=== PATIENT | female | born 1950 | race Caucasian/White ===

== ENCOUNTER 2023-06-12 12:35 | Outpatient (CLI) | payer BC, SELFPAY | END 2023-06-12 12:36 | disposition home or self-care (01) | LOC: AMB 06-22 12:18 | PROVIDERS: PCP Family Medicine; Visit Provider Emergency Medicine | DX: S59.911A Unspecified injury of right forearm, initial encounter (principal); W01.0XXA Fall on same level from slipping, tripping and stumbling without subsequent striking against object, initial encounter; Z91.81 History of falling; Y92.099 Unspecified place in other non-institutional residence as the place of occurrence of the external cause | CPT/HCPCS: A0425; A0429 ==

== ENCOUNTER 2023-06-12 13:11 | Observation (INO) | payer BC, SELFPAY ==
[2023-06-12] VITALS (34 sets, daily range): BP systolic 65–148; BP diastolic 49–83; PULSE 65–81; RESP 14–16; TEMP 36.1–37.3; O2SAT 94–99; BMI 19.6; BMI 18.3
--- NOTE | 2023-06-12 13:26 | ED.FALL ---
HPI - Fall General Time Seen by Provider: 13: Date Seen: 06/12/23 Chief Complaint: Fall/Minor Trauma Stated Complaint: Fall Time Seen by Provider: 06/12/23 13:20 Source: patient, family and EMS Mode of arrival: EMS History of Present Illness HPI Narrative: This 72-year-old female is brought in by ambulance after a fall and reported confusion. She reportedly at [facility] and fell unwitnessed. Patient has been noted to be unable to give a definitive story for the fall. She tells me that she was eating lunch in her bed in then her foot became hooked in a bar and she could not get it free, fell to the ground. She states her only pain is in her face. Her daughter notes that the erythematous swelling in her face is new trauma. She was at [facility] last Monday for subdural hematoma, did have surgical evacuation per report. Her daughter notes she was more confused prior to the surgery but seemed to clear after it. She told EMS that she was walking around foot of the bed in tried miss the CT and tripped into her neck neck shelf. She told her daughter when her daughter met her here on arrival that she fell out of bed. She later tells me that her foot got caught in the bar of the table and that is how she fell. She will nursing staff that she had pain in her arm, pain in her face and headache. To me she is stating she has pain only in the right side of her face, points to her right cheek area where there is redness and swelling. This fall was unwitnessed, probably around 11:45 a.m., she was reported to be found by her roommate. She is not on blood thinners or anticoagulation. No noted fevers. complaint: fall Related Data Home Medications Medication Instructions Recorded Confirmed acetaminophen 325 mg capsule 650 mg PO Q6H PRN 06/12/23 06/12/23 (Tylenol) alendronate 70 mg tablet 70 mg PO QWEEK 06/12/23 06/12/23 amlodipine 10 mg tablet 10 mg PO DAILY 06/12/23 06/12/23 aspirin 81 mg capsule 81 mg PO DAILY 06/12/23 06/12/23 lacosamide 50 mg tablet 50 mg PO .COMPLEX 06/12/23 06/12/23 lidocaine 5 % topical patch 1 patch topical Q24H 06/12/23 06/12/23 nitroglycerin 0.4 mg sublingual 0.4 mg sublingual Q5M PRN 06/12/23 06/12/23 tablet (Nitrostat) ondansetron 4 mg disintegrating 4 mg PO Q8-12H PRN 06/12/23 06/12/23 tablet polyethylene glycol ea miscellaneous 06/12/23 propranolol 60 mg capsule,24 60 mg PO BID 06/12/23 06/12/23 hr,extended release rosuvastatin 40 mg sprinkle capsule 40 mg PO DAILY 06/12/23 06/12/23 sennosides 8.6 mg-docusate sodium 1 tab-cap PO BID 06/12/23 06/12/23 50 mg tablet (Senna with Docusate Sodium) valsartan 160 mg tablet 160 mg PO BID 06/12/23 06/12/23 Allergies Allergy/AdvReac Type Severity Reaction Status Date / Time amoxicillin Allergy Severe Anaphylaxis Verified 06/12/23 13:35 annelise Allergy Severe Anaphylaxis Verified 06/12/23 13:35 pineapple Allergy Severe Anaphylaxis Verified 06/12/23 13:35 prednisone Allergy Intermediate Rash Verified 06/12/23 13:35 testosterone Allergy Intermediate Rash Verified 06/12/23 13:35 latex Allergy Unknown Verified 06/12/23 13:35 egg AdvReac Mild Headache Verified 06/12/23 13:35 Review of Systems Status of ROS: Reports: 6 or more systems reviewed and unremarkable except as noted in History and below [facility] Social History Smoking Status: Never smoker How often do you have a drink containing alcohol: never AUDIT-C Alcohol total score: 0 Non-prescribed substance use: denies use Exam Const: Vital Signs, click to edit/add: Vital Signs - 24 hr 06/12/23 13:13 06/12/23 13:17 06/12/23 13:18 Temperature 98.8 F Pulse Rate 71 72 Pulse Rate [Pulse Oximeter] 69 Respiratory Rate 14 Blood Pressure 133/76 Blood Pressure [Ri ght Upper Arm] 137/75 Pulse Oximetry 97 97 97 Oxygen Delivery Me thod Room Air 06/12/23 13:30 06/12/23 13:32 06/12/23 13:33 Temperature Pulse Rate 69 68 68 Pulse Rate [Pulse Oximeter] Respiratory Rate Blood Pressure 65/49 L 118/74 Blood Pressure [Ri ght Upper Arm] Pulse Oximetry 97 98 98 Oxygen Delivery Me thod 06/12/23 13:33 06/12/23 13:45 06/12/23 14:00 Temperature Pulse Rate 68 70 67 Pulse Rate [Pulse Oximeter] Respiratory Rate Blood Pressure 118/74 Blood Pressure [Ri ght Upper Arm] Pulse Oximetry 98 97 97 Oxygen Delivery Me thod 06/12/23 14:39 06/12/23 15:17 06/12/23 15:30 Temperature Pulse Rate 71 68 Pulse Rate [Pulse Oximeter] Respiratory Rate Blood Pressure 129/74 Blood Pressure [Ri ght Upper Arm] Pulse Oximetry 97 96 Oxygen Delivery Vt thod 06/12/23 15:31 06/12/23 15:32 06/12/23 15:45 Temperature Pulse Rate 70 67 67 Pulse Rate [Pulse Oximeter] Respiratory Rate Blood Pressure 127/78 Blood Pressure [Ri ght Upper Arm] Pulse Oximetry 95 96 97 Oxygen Delivery Vt thod 06/12/23 16:00 06/12/23 16:02 06/12/23 16:15 Temperature Pulse Rate 67 67 70 Pulse Rate [Pulse Oximeter] Respiratory Rate Blood Pressure 124/79 Blood Pressure [Ri ght Upper Arm] Pulse Oximetry 97 96 97 Oxygen Delivery Vt thod Patient is alert, interactive, no apparent distress. Her speech is succinct, does seem confused with her history of her fall changing. She has erythema and some bruising above the right eyebrow, over the right zygomatic arch. Pupils equal round, extraocular muscles intact, sclera clear. Symmetrical facial function. Oropharynx normal. No drainage from canals or nares. She has no midline tenderness of her neck when I palpate, no paraspinous tenderness, no masses or adenopathy noted. She does not complain of pain with range of motion. She is slender framed, lungs are clear, good air entry, CV regular rate and rhythm, no murmur heard, normal S1-S2, no S3-S4. Abdomen is soft, no rebound or guarding. Upper extremity and lower extremity strength is 5/5 and symmetric. She has normal sensation. Fine no traumatic changes on inspection. She has no complaints of range of motion of her extremities. She has sutures along the left temporoparietal scalp without any surrounding significant swelling or erythema. There is no drainage. See no other acute changes on inspection of her scalp. Documenting provider has reviewed patient's vital signs: yes Course Course ED Course: This 72-year-old female recently has had intracranial pathology with reported subdural treated surgically at [facility] last week. I have no other history on her. She does seem confused and history is ever changing as to the events of her fall. She has visible facial trauma. Will obtain new head CT, facial bone CT and cervical spine CT, all without contrast. Will get a full complement of labs, consider infectious etiology as well as trauma here. Will start with a portable chest x-ray. Consider imaging other extremities are complaints that may arise. I see no definite traumatic change on evaluation of her right extremity, seemed to have good movement and strength without complaints of pain on my initial exam. Will continue to evaluate. Will give her a dose of Tylenol, she is complaining of some facial pain at this time. Reevaluation(s) Time of Reevaluation #1: 16:22 Reevaluation #1: Patient is conversive, alert. Reviewed that there is no acute bleeding, no acute fractures that are seen at this time. She does have a UTI. I a have advised her that I favor her coming in observation overnight, she has already fallen once at [facility] today. She would prefer to go home. I am going to leave her and her daughter to talk about this, they know my preference. I will initiate IV Rocephin in the interim while they discuss her disposition further. Did subsequently review with pharmacy her amoxicillin listed allergy as anaphylaxis. They feel it is safe to proceed with giving her IV ceftriaxone as she is monitored here. Consultations Consultation #1: Did call our hospitalist Dr. Galindo after follow-up with patient. She and her daughter agree that she will stay overnight. I think this is the safest option. Reviewed with hospitalist, she will be assuming care. Patient is tolerating the Rocephin without any complication at this time. Time: 17:01 Vital Signs Vital signs: Initial Vital Signs Temperature 98.8 F 06/12/23 13:13 Temperature Source Temporal Artery Scan 06/12/23 13:13 Pulse Rate 69 06/12/23 13:13 Respiratory Rate 14 06/12/23 13:13 Blood Pressure 137/75 02/26/24 13:13 Blood Pressure Mean 95 06/12/23 13:13 Blood Pressure Position Supine 06/12/23 13:13 Pulse Oximetry 97 06/12/23 13:13 Oxygen Delivery Method Room Air 06/12/23 13:13 Vital Signs Temperature 98.8 F 06/12/23 13:13 Pulse Rate 69 06/12/23 13:13 Respiratory Rate 14 06/12/23 13:13 Blood Pressure 137/75 06/12/23 13:13 Pulse Oximetry 97 06/12/23 13:13 Oxygen Delivery Method Room Air 06/12/23 13:13 Temperature 98.8 F 06/12/23 13:13 Pulse Rate 70 06/12/23 16:15 Respiratory Rate 14 06/12/23 13:13 Blood Pressure 124/79 06/12/23 16:02 Pulse Oximetry 97 06/12/23 16:15 Oxygen Delivery Method Room Air 06/12/23 13:13 Medications Administered Medications: Discontinued Medications Generic Name Dose Route Start Last Admin Trade Name Celsa PRN Reason Stop Dose Admin Acetaminophen 650 mg 06/12/23 13:54 06/12/23 14:52 Acetaminophen 325 Mg Tablet PO 06/12/23 13:55 650 mg ONCE ONE Administration Ceftriaxone Sodium 1 gm/ 100 mls @ 200 mls/hr 06/12/23 16:26 06/12/23 16:39 Sodium Chloride IVPB 06/12/23 16:27 200 mls/hr ONCE ONE Administration MDM - Fall Lab Data Attestation: I reviewed the patient's lab results. Labs: Lab Results 06/12/23 06/12/23 06/12/23 Range/Units 14:05 14:15 14:35 WBC 4.68 (4.50-11.00) K/uL RBC 4.68 (4.00-5.20) m/uL Hgb 13.9 (12.0-16.0) gm/dL Hct 42.4 (33.0-51.0) % MCV 91 (80-100) fL MCH 30 (26-34) pg MCHC 33 (32-36) gm/dL RDW Coeff of Abdi 14.2 (11.5-15.5) % Plt Count 205 (140-440) K/uL Neut % (Auto) 63.1 (42.0-72.0) % Lymph % (Auto) 22.2 (20-44) % [place] % (Auto) 10.9 (0.0-11.0) % Eos % (Auto) 3.4 (0.0-7.0) % Baso % (Auto) 0.2 (0.0-3.0) % Neut # (Auto) 2.95 (1.7-7.0) K/uL Lymph # (Auto) 1.04 (0.90-2.90) K/uL [place] # (Auto) 0.50 (0.00-0.90) K/UL Eos # (Auto) 0.16 (0.00-0.50) K/uL Baso # (Auto) 0.01 (0.00-0.30) K/uL Abs Immat Gran (auto) 0.01 (0.00-0.30) K/uL Imm/Tot Granulo (auto) 0.2 % Sodium 133 L (135-149) mmol/L Potassium 3.2 L (3.6-5.1) mmol/L Chloride 102 (96-114) mmol/L Carbon Dioxide 24 (20-32) mmol/L Anion Gap 7 (7-15) mEq/L BUN 9 (7-30) mg/dL Creatinine 0.5 (0.5-1.5) mg/dL Estimated Creat Clear 40.29 Estimated GFR 98 ml/min Glucose 85 (60-115) mg/dL Lactate 1.1 (0.5-1.9) mmol/L Calcium 8.9 (8.4-10.6) mg/dL Total Bilirubin 1.0 (0.1-1.5) mg/dL AST 25 (12-35) U/L ALT 13 (4-35) U/L Alkaline Phosphatase 116 (40-150) U/L Troponin I < 0.01 L (0.01-0.04) ng/mL C-Reactive Protein 0.7 (0.5-1.0) mg/dL Total Protein 6.5 (6.0-8.3) g/dL Albumin 3.5 (3.3-5.0) g/dL Urine Color [place] A (Yellow) Urine Appearance Cloudy A (Clear) Urine pH 7.0 (5.0-8.5) Ur Specific [place] 1.020 (1.000-1.030) Urine Protein 2+ A (Negative) Urine Glucose (UA) Negative (Negative) Urine Ketones Trace A (Negative) Urine Blood 3+ A (Negative) Urine Nitrite Negative (Negative) Urine Bilirubin 1+ A (Negative) Urine Urobilinogen 2.0 A (0.2-1.0) Ur Leukocyte Esterase 3+ A (Negative) Urine RBC >100 A (0-2) Urine WBC >100 A (0-5) Ur Squamous Epith Cells Few (None-Few) Urine Bacteria Many A (None) SARS-CoV-2 (PCR) Negative SARS-CoV-2 (Negative) Influenza Type A (PCR) Negative PCR FLU A (Negative) Influenza Type B (PCR) Negative PCR FLU B (Negative) RSV (PCR) Negative PCR RSV (Negative) Imaging Data CT scan - head: Attestation: I have reviewed the pertinent imaging results. My impression: Can see some left-sided posterior changes that look to be consistent with nonacute subdural, wait radiology over read. Radiologist's impression: Patient: DARIUS ALCANTAR Facility:?[facility] Patient ID:?[id number] Site Patient ID:?[id number]. Site :?1950 Study:?CT Head WITHOUT-06/12/2023 3:29:27 PM Ordering Physician:JAVIER ALBARADO Final Report: INDICATION: Fall, altered mental status TECHNIQUE: CT head without contrast. COMPARISON: None. FINDINGS: CSF spaces: Left parietal subdural collection measuring up to 5 millimeters and maximal thickness causing mild sulcal effacement. Collection is low-density. Brain parenchyma: Huang-white differentiation is distinct. Mild low-density in the deep white matter. Mild sulcal effacement in the left parietal lobe. Skull base and calvarium: The visualized paranasal sinuses and mastoid air cells demonstrate no acute or significant findings. The visualized orbits are grossly unremarkable. Atherosclerosis. Jadwin hole at the left parietal bone. IMPRESSION: 1. No acute intracranial bleed. 2. 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 Mild mass effect with some sulcal effacement in the left parietal lobe. 3. Nonspecific white matter disease, likely microangiopathy. Please note that all CT scans at this facility use dose modulation, iterative reconstruction, and/or weight-based dosing when appropriate to reduce radiation dose to as low as reasonably achievable. Dictated by Tiago Salazar MD @ 06/12/2023 3:42:23 PM (Electronic Signature) CT facial bones: Attestation: I have reviewed the pertinent imaging results. My impression: I did visualize in did not appreciate any acute fracture, await Radiology over-read. Radiologist's impression: Patient: DARIUS ALCANTAR Facility:?[facility] Patient ID:?[id number] Site Patient ID:?[id number]. Site :?1950 Study:?CT Facial WITHOUT-06/12/2023 3:30:59 PM Ordering Physician:?DR. ALBARADO Final Report: INDICATION: Fall, altered mental status. TECHNIQUE: CT maxillofacial without contrast. COMPARISON: None FINDINGS: Facial bones: No fractures or bone lesions. Specifically the nasal bones, temporomandibular joints, maxilla and mandible appear intact. Orbits and globes: Unremarkable. Globes are intact. No sign of intraorbital hemorrhage or emphysema. Sinuses: No acute or significant findings. Soft tissues: Atherosclerosis. IMPRESSION: No evidence of facial fracture. Please note that all CT scans at this facility use dose modulation, iterative reconstruction, and/or weight-based dosing when appropriate to reduce radiation dose to as low as reasonably achievable. Dictated by Tiago Salazar MD @ 06/12/2023 3:56:25 PM (Electronic Signature) CT cervical spine: Attestation: I have reviewed the pertinent imaging results. Radiologist's impression: Patient: DARIUS ALCANTAR Facility:?[facility] Patient ID:?[id number] Site Patient ID:?[id number]. Site :?1950 Study:?CT Spine Cervical -06/12/2023 3:32:10 PM Ordering Physician:?DR. ALBARADO Final Report: INDICATION: Fall TECHNIQUE: CT cervical spine without contrast. COMPARISON: None FINDINGS: Vertebrae: Slight sclerosis at the superior endplates of T1 and T2 without well-defined fracture plane. Discs and facet joints: Facet hypertrophy C2-3 without significant stenosis. Facet hypertrophy C3-4 without significant stenosis. Facet hypertrophy C4-5 without significant stenosis. Facet hypertrophy C5-6 causing mild to moderate left foraminal stenosis. Facet hypertrophy at C6-7 and C7-T1 without significant stenosis. Extraspinal findings: Atherosclerosis. IMPRESSION: 1. No displaced cervical spine fracture seen. Slight sclerosis at the superior endplate of T1 and T2. No well-defined fracture plane is seen although note this can be seen in a subtle, age-indeterminate endplate fracture. Clinical correlation for point tenderness at the T1-2 level. In clinically uncertain cases, MRI of the cervical spine would have improved specificity for the age of fracture. 2. Multilevel degenerative changes cervical spine as detailed above. Please note that all CT scans at this facility use dose modulation, iterative reconstruction, and/or weight-based dosing when appropriate to reduce radiation dose to as low as reasonably achievable. Dictated by Tiago Salazar MD @ 06/12/2023 3:53:46 PM (Electronic Signature) Note, patient is complaining of no neck or back pain. She is having confusion, altered mental status likely due to UTI. She had no point tenderness clinically on exam however. Chest x-ray: Attestation: I have reviewed the pertinent imaging results. Radiologist's impression: Patient: DARIUS ALCANTAR Facility:?[facility] Patient ID:?[id number] Site Patient ID:?[id number]. Site :?1950 Study:?XRay Chest 1V-06/12/2023 2:25:49 PM Ordering Physician:?DR. RIVERA Final Report: Indication: Fall Technique: Chest 1 view Comparison: None Findings/Impression: Cardiovascular and mediastinum: Normal heart size with atherosclerotic calcification. Lungs and pleural space: No pleural effusion or pneumothorax. Calcified granuloma right lung base. Mild bilateral bronchial wall thickening which can be seen in bronchitis or reactive airways disease. Bones and soft tissues: Bilateral glenohumeral osteoarthritis. Dictated by Tiago Salazar MD @ 06/12/2023 2:35:57 PM (Electronic Signature) ECG Data Attestation: I personally reviewed and interpreted this ECG as follows: (Sinus rhythm, 67 beats per minute. Inferolateral ST segment depression, flipped T-waves same distribution. QT corrected 412 milliseconds.) ECG interpretation date: 06/12/23 ECG interpretation time: 13:43 Prior ECG tracings: not available for review Discharge Plan Discharge Clinical Impression: Acute confusion, Acute UTI Contusion of face Qualifiers: Encounter type: initial encounter Qualified Code(s): S00.83XA - Contusion of other part of head, initial encounter Fall Qualifiers: Encounter type: initial encounter Qualified Code(s): W19.XXXA - Unspecified fall, initial encounter Patient Disposition: Admitted As Observation Prescriptions: No Action acetaminophen [Tylenol] 325 mg capsule 650 mg PO Q6H PRN lacosamide 50 mg tablet 50 mg PO .COMPLEX Rx Instructions: 50 mg orally 2 tabs in morning, 3 tabs in evening; polyethylene glycol Powder miscellaneous sennosides-docusate sodium [Senna with Docusate Sodium] 8.6-50 mg tablet 1 tab-cap PO BID valsartan 160 mg tablet 160 mg PO BID amlodipine 10 mg tablet 10 mg PO DAILY aspirin 81 mg capsule 81 mg PO DAILY propranolol 60 mg capsule,extended release 24 hr 60 mg PO BID alendronate 70 mg tablet 70 mg PO QWEEK lidocaine 5 % adhesive patch,medicated 1 patch topical Q24H Rx Instructions: leave on most painful area for up to 12 hrs nitroglycerin [Nitrostat] 0.4 mg tablet, sublingual 0.4 mg sublingual Q5M PRN Rx Instructions: do not exceed 3 doses per episode ondansetron 4 mg tablet,disintegrating 4 mg PO Q8-12H PRN rosuvastatin 40 mg capsule, sprinkle 40 mg PO DAILY Follow Up/Referrals: William Ramsay MD [Primary Care Provider] -
--- NOTE | 2023-06-12 13:38 | CT_ITS ---
Patient: DARIUS ALCANTAR Facility:?[facility] Patient ID:?[id number] Site Patient ID:?[id number]. Site :?1950 Study:?CT-Facial WITHOUT-06/12/2023 3:30:59 PM Ordering Physician:?DR. ALBARADO Final Report: INDICATION: Fall, altered mental status. TECHNIQUE: CT maxillofacial without contrast. COMPARISON: None FINDINGS: Facial bones: No fractures or bone lesions. Specifically the nasal bones, temporomandibular joints, maxilla and mandible appear intact. Orbits and globes: Unremarkable. Globes are intact. No sign of intraorbital hemorrhage or emphysema. Sinuses: No acute or significant findings. Soft tissues: Atherosclerosis. IMPRESSION: No evidence of facial fracture. Please note that all CT scans at this facility use dose modulation, iterative reconstruction, and/or weight-based dosing when appropriate to reduce radiation dose to as low as reasonably achievable. Dictated by Tiago Salazar MD @ 06/12/2023 3:56:25 PM Signed by:?Tiago Salazar MD @06/12/2023 3:56:25 PM (Electronic Signature)
--- NOTE | 2023-06-12 13:38 | CT_ITS ---
Patient: DARIUS ALCANTAR Facility:?[facility] Patient ID:?[id number] Site Patient ID:?[id number]. Site :?1950 Study:?CT-Head WITHOUT-06/12/2023 3:29:27 PM Ordering Physician:?DR. ALBARADO Final Report: INDICATION: Fall, altered mental status TECHNIQUE: CT head without contrast. COMPARISON: None. FINDINGS: CSF spaces: Left parietal subdural collection measuring up to 5 millimeters and maximal thickness causing mild sulcal effacement. Collection is low-density. Brain parenchyma: Huang-white differentiation is distinct. Mild low-density in the deep white matter. Mild sulcal effacement in the left parietal lobe. Skull base and calvarium: The visualized paranasal sinuses and mastoid air cells demonstrate no acute or significant findings. The visualized orbits are grossly unremarkable. Atherosclerosis. Renato hole at the left parietal bone. IMPRESSION: 1. No acute intracranial bleed. 2. 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 Mild mass effect with some sulcal effacement in the left parietal lobe. 3. Nonspecific white matter disease, likely microangiopathy. Please note that all CT scans at this facility use dose modulation, iterative reconstruction, and/or weight-based dosing when appropriate to reduce radiation dose to as low as reasonably achievable. Dictated by Tiago Salazar MD @ 06/12/2023 3:42:23 PM Signed by:?Tiago Salazar MD @06/12/2023 3:42:23 PM (Electronic Signature)
--- NOTE | 2023-06-12 13:48 | XR_ITS ---
Patient: DARIUS ALCANTAR Facility:?[facility] Patient ID:?[id number] Site Patient ID:?[id number]. Site :?1950 Study:?XRay-Chest 1V-06/12/2023 2:25:49 PM Ordering Physician:?DR. RIVERA Final Report: Indication: Fall Technique: Chest 1 view Comparison: None Findings/Impression: Cardiovascular and mediastinum: Normal heart size with atherosclerotic calcification. Lungs and pleural space: No pleural effusion or pneumothorax. Calcified granuloma right lung base. Mild bilateral bronchial wall thickening which can be seen in bronchitis or reactive airways disease. Bones and soft tissues: Bilateral glenohumeral osteoarthritis. Dictated by Tiago Salazar MD @ 06/12/2023 2:35:57 PM Signed by:?Tiago Salazar MD @06/12/2023 2:35:57 PM (Electronic Signature)
--- NOTE | 2023-06-12 13:48 | CT_ITS ---
Patient: DARIUS ALCANTAR Facility:?[facility] Patient ID:[id number] Site Patient ID:?[id number]. Site :?1950 Study:?CT-Spine Cervical -06/12/2023 3:32:10 PM Ordering Physician:?DR. ALBARADO Final Report: INDICATION: Fall TECHNIQUE: CT cervical spine without contrast. COMPARISON: None FINDINGS: Vertebrae: Slight sclerosis at the superior endplates of T1 and T2 without well- defined fracture plane. Discs and facet joints: Facet hypertrophy C2-3 without significant stenosis. Facet hypertrophy C3-4 without significant stenosis. Facet hypertrophy C4-5 without significant stenosis. Facet hypertrophy C5-6 causing mild to moderate left foraminal stenosis. Facet hypertrophy at C6-7 and C7-T1 without significant stenosis. Extraspinal findings: Atherosclerosis. IMPRESSION: 1. No displaced cervical spine fracture seen. Slight sclerosis at the superior endplate of T1 and T2. No well-defined fracture plane is seen although note this can be seen in a subtle, age-indeterminate endplate fracture. Clinical correlation for point tenderness at the T1-2 level. In clinically uncertain cases, MRI of the cervical spine would have improved specificity for the age of fracture. 2. Multilevel degenerative changes cervical spine as detailed above. Please note that all CT scans at this facility use dose modulation, iterative reconstruction, and/or weight-based dosing when appropriate to reduce radiation dose to as low as reasonably achievable. Dictated by Tiago Salazar MD @ 06/12/2023 3:53:46 PM Signed by:?Tiago Salazar MD @06/12/2023 3:53:46 PM (Electronic Signature)
[2023-06-12 14:22] LABS: Lactate* 1.1 mmol/L (0.5-1.9)
[2023-06-12 14:25] LABS: Basophils Absolute Auto 0.01 K/uL (0.00-0.30); Basophils Percent Auto 0.2 % (0.0-3.0); Eosinophils Absolute Auto 0.16 K/uL (0.00-0.50); Eosinophils Percent Auto 3.4 % (0.0-7.0); Hematocrit 42.4 % (33.0-51.0); Hemoglobin* 13.9 gm/dL (12.0-16.0); Immature Granulocytes Abs Auto 0.01 K/uL (0.00-0.30); Immature Granulocytes Pct Auto 0.2 %; Lymphocytes Absolute Auto 1.04 K/uL (0.90-2.90); Lymphocytes Percent Auto 22.2 % (20-44); Mean Corpuscular HGB Conc 33 gm/dL (32-36); Mean Corpuscular Hemoglobin 30 pg (26-34); Mean Corpuscular Volume 91 fL (80-100); Monocytes Percent Auto 10.9 % (0.0-11.0); Neutrophils Absolute Auto 2.95 K/uL (1.7-7.0); Neutrophils Percent Auto 63.1 % (42.0-72.0); Platelet Count* 205 K/uL (140-440); RDW Coefficient of Variation % 14.2 % (11.5-15.5); Red Blood Count 4.68 m/uL (4.00-5.20); White Blood Count* 4.68 K/uL (4.50-11.00)
[2023-06-12 14:34] LABS: Slide Review Reflex No
[2023-06-12 14:44] LABS: Appearance Urine Cloudy (Clear); Bilirubin Urine 1+ (Negative); Blood Urine 3+ (Negative); Color Urine Orange (Yellow); Glucose Urine Negative (Negative); Ketones Urine Trace (Negative); Leukocyte Esterase Urine 3+ (Negative); Nitrite Urine Negative (Negative); Protein Urine 2+ (Negative)
[2023-06-12 14:47] LABS: PCR FLU A Negative PCR FLU A (Negative); PCR FLU B Negative PCR FLU B (Negative); PCR RSV Negative PCR RSV (Negative); SARS PCR* Negative SARS-CoV-2 (Negative)
[2023-06-12 14:51] LABS: Bacteria Urine Many; RBC Urine >100 (0-2); Squamous Epithelial Cell Urine Few (None-Few); WBC Urine >100 (0-5)
[2023-06-12 14:51] LABS: Albumin* 3.5 g/dL (3.3-5.0); Chloride* 102 mmol/L (96-114); Sodium* 133 mmol/L (135-149)
[2023-06-12 14:52] LABS: Potassium* 3.2 mmol/L (3.6-5.1)
[2023-06-12] MEDS: ACETAMINOPHEN 325 MG TABLET 650 MG PO ×2 (14:52→20:28)
[2023-06-12 14:54] LABS: Alanine Aminotransferase* 13 U/L (4-35); Alkaline Phosphatase* 116 U/L (40-150); Anion Gap 7 mEq/L (7-15); Aspartate Amino Transferase* 25 U/L (12-35); Blood Urea Nitrogen* 9 mg/dL (7-30); Carbon Dioxide* 24 mmol/L (20-32); Creatinine* 0.5 mg/dL (0.5-1.5); Est. Creatinine Clearance* 40.29; Estimated Glomerular Filt Rate 98 ml/min; Total Protein* 6.5 g/dL (6.0-8.3)
[2023-06-12 14:55] LABS: Calcium* 8.9 mg/dL (8.4-10.6); Glucose* 85 mg/dL (60-115)
[2023-06-12 14:57] LABS: C Reactive Protein* 0.7 mg/dL (0.5-1.0)
[2023-06-12 15:06] LABS: Troponin I* < 0.01 ng/mL (0.01-0.04)
[2023-06-12] MEDS: cefTRIAXone 1 GM in 0.9 % SODIUM CHLORIDE Mini-bag 100 ML IVPB (16:39)
--- NOTE | 2023-06-12 18:43 | ED.NURSE ---
Report given to ANGELIC Bowers. Pt will go to 262.
--- NOTE | 2023-06-12 21:29 | PM.IMHP1 ---
Hospitalist- H&P: HPI History of Present Illness Date Seen: 06/13/23 Chief complaint: Fall Narrative: Carla Gandara is a 72 year old female brought in to the emergency room by EMS this afternoon after an unwitnessed fall at [facility]. Patient tells me that she had a mechanical fall, getting her foot tangled in a bar under the lunch table while waiting for potato soup. She hit the right side of her face. She does not believe she lost consciousness. She was noted to have abrasions on her face upon arrival to the ED. Notably, Carla fell and hit the back of her head earlier this month. She did require hospitalization at [facility] with recent renato hole by neurosurgery for subdural hematoma. ER course and findings: - no acute findings on head CT or facial bone CT - C-spine CT noted sclerosis at the superior endplate of T1 and T2; correlate clinically for point tenderness (none noted on formal exam) Histories updated below. PCP is Dr. Ramsay at [facility]. Review of Systems Status of ROS: Reports: 10 or more systems reviewed and unremarkable except as noted in History and below [facility] Medical History (Updated 06/13/23 @ 00:16 by Thi Galindo MD) Seizure disorder ?G40.909 - Epilepsy, unspecified, not intractable, without status epilepticus (ICD-10) Essential tremor ?G25.0 - Essential tremor (ICD-10) Essential hypertension ?I10 - Essential (primary) hypertension (ICD-10) CAD (coronary artery disease) ?I25.10 - Atherosclerotic heart disease of [place] coronary artery without angina pectoris (ICD-10) Surgical History (Updated 06/13/23 @ 00:16 by Thi Galindo MD) History of renato hole surgery ?Z98.890 - Other specified postprocedural states (ICD-10) H/O heart artery stent ?Z95.5 - Presence of coronary angioplasty implant and graft (ICD-10) S/P cholecystectomy ?Z90.49 - Acquired absence of other specified parts of digestive tract (ICD-10) Social History (Updated 06/13/23 @ 00:19 by Thi Galindo MD) Narrative: Lives with in [place], one adult daughter (they would share MDM if needed). DNR/DNI. Nonsmoker, no ETOH. Currently (05/2023) at [facility] following a subdural hematoma requiring [place] evacuation. What is your current living situation?: I presently have a place to live Problems where you live: no known problems Problems where you live details: N/A In the past 12 months, utilities in danger of being shut off: no In past 12 months, lack of transportation kept you from medical appts, meetings, work, or getting things needed for daily living: no In the past 12 mos, have been you worried that your food would run out before you had money to buy more?: never true In the past 12 mos, the food you bought just didn't last and you didn't have money to buy more?: never true Smoking Status: Never smoker How often do you have a drink containing alcohol: never AUDIT-C Alcohol total score: 0 Non-prescribed substance use: marijuana (any form) Caffeine: No How often does anyone, including family, friends and others, physically hurt you: never How often does anyone, including family, friends and others, insult or talk down to you: never How often does anyone, including family, friends and others, threaten you with harm: never How often does anyone, including family, friends and others, scream or curse at you: never service: No Meds Home Medications and Allergies Home Medications Medication Instructions Recorded Confirmed Type acetaminophen 325 mg capsule 650 mg PO Q6H PRN 06/12/23 06/12/23 History (Tylenol) alendronate 70 mg tablet 70 mg PO QWEEK 06/12/23 06/12/23 History amlodipine 10 mg tablet 10 mg PO DAILY 06/12/23 06/12/23 History aspirin 81 mg capsule 81 mg PO DAILY 06/12/23 06/12/23 History lacosamide 50 mg tablet 50 mg PO .COMPLEX 06/12/23 06/12/23 History lidocaine 5 % topical patch 1 patch topical Q24H 06/12/23 06/12/23 History nitroglycerin 0.4 mg sublingual 0.4 mg sublingual Q5M PRN 06/12/23 06/12/23 History tablet (Nitrostat) ondansetron 4 mg disintegrating 4 mg PO Q8-12H PRN 06/12/23 06/12/23 History tablet polyethylene glycol ea miscellaneous 06/12/23 History propranolol 60 mg capsule,24 60 mg PO BID 06/12/23 06/12/23 History hr,extended release rosuvastatin 40 mg sprinkle capsule 40 mg PO DAILY 06/12/23 06/12/23 History sennosides 8.6 mg-docusate sodium 1 tab-cap PO BID 06/12/23 06/12/23 History 50 mg tablet (Senna with Docusate Sodium) valsartan 160 mg tablet 160 mg PO BID 06/12/23 06/12/23 History Allergies Allergy/AdvReac Type Severity Reaction Status Date / Time amoxicillin Allergy Severe Anaphylaxis Verified 06/12/23 13:35 annelise Allergy Severe Anaphylaxis Verified 06/12/23 13:35 pineapple Allergy Severe Anaphylaxis Verified 06/12/23 13:35 prednisone Allergy Intermediate Rash Verified 06/12/23 13:35 testosterone Allergy Intermediate Rash Verified 06/12/23 13:35 latex Allergy Unknown Verified 06/12/23 13:35 egg AdvReac Mild Headache Verified 06/12/23 13:35 Exam Narrative: Exam Narrative: GEN: Alert and oriented, answering questions appropriately HEENT: Wearing stocking hat, recent renato hole intervention not examined. Hematoma R cheek and above R eye without any proptosis or concerning eyelid edema, + EOMIs CV: RRR, No concerning murmurs, rubs, or gallops R: LCTA bilaterally without concerning wheezing, air movement adequate Ext: wwp, no concerning edema Skin: Besides facial bruising, no concerning skin lesions or rashes on exposed skin Neuro: + resting tremor of BUE (chronic, per patient) Psych: Appropriate Const: Vital Signs, click to edit/add: Vital Signs - 24 hr 06/12/23 13:13 06/12/23 13:17 06/12/23 13:18 Temperature 98.8 F Pulse Rate 71 72 Pulse Rate [Pulse Oximeter] 69 Respiratory Rate 14 Blood Pressure 133/76 Blood Pressure [Le ft Arm] Blood Pressure [Ri ght Upper Arm] 137/75 Pulse Oximetry 97 97 97 Oxygen Delivery Me thod Room Air 06/12/23 13:30 06/12/23 13:32 06/12/23 13:33 Temperature Pulse Rate 69 68 68 Pulse Rate [Pulse Oximeter] Respiratory Rate Blood Pressure 65/49 L 118/74 Blood Pressure [Le ft Arm] Blood Pressure [Ri ght Upper Arm] Pulse Oximetry 97 98 98 Oxygen Delivery Me thod 06/12/23 13:33 06/12/23 13:45 06/12/23 14:00 Temperature Pulse Rate 68 70 67 Pulse Rate [Pulse Oximeter] Respiratory Rate Blood Pressure 118/74 Blood Pressure [Le ft Arm] Blood Pressure [Ri ght Upper Arm] Pulse Oximetry 98 97 97 Oxygen Delivery Me thod 06/12/23 14:39 06/12/23 15:17 06/12/23 15:30 Temperature Pulse Rate 71 68 Pulse Rate [Pulse Oximeter] Respiratory Rate Blood Pressure 129/74 Blood Pressure [Le ft Arm] Blood Pressure [Ri ght Upper Arm] Pulse Oximetry 97 96 Oxygen Delivery Me thod 06/12/23 15:31 06/12/23 15:32 06/12/23 15:45 Temperature Pulse Rate 70 67 67 Pulse Rate [Pulse Oximeter] Respiratory Rate Blood Pressure 127/78 Blood Pressure [Le ft Arm] Blood Pressure [Ri ght Upper Arm] Pulse Oximetry 95 96 97 Oxygen Delivery Me thod 06/12/23 16:00 06/12/23 16:02 06/12/23 16:15 Temperature Pulse Rate 67 67 70 Pulse Rate [Pulse Oximeter] Respiratory Rate Blood Pressure 124/79 Blood Pressure [Le ft Arm] Blood Pressure [Ri ght Upper Arm] Pulse Oximetry 97 96 97 Oxygen Delivery Me thod 06/12/23 16:30 06/12/23 16:32 06/12/23 16:45 Temperature Pulse Rate 67 67 68 Pulse Rate [Pulse Oximeter] Respiratory Rate Blood Pressure 130/76 Blood Pressure [Le ft Arm] Blood Pressure [Ri ght Upper Arm] Pulse Oximetry 97 97 97 Oxygen Delivery Me thod 06/12/23 17:00 06/12/23 17:01 06/12/23 17:15 Temperature Pulse Rate 72 76 71 Pulse Rate [Pulse Oximeter] Respiratory Rate Blood Pressure 148/72 H Blood Pressure [Le ft Arm] Blood Pressure [Ri ght Upper Arm] Pulse Oximetry 97 96 98 Oxygen Delivery Me thod 06/12/23 17:30 06/12/23 17:32 06/12/23 17:45 Temperature Pulse Rate 72 72 81 Pulse Rate [Pulse Oximeter] Respiratory Rate Blood Pressure 133/64 Blood Pressure [Le ft Arm] Blood Pressure [Ri ght Upper Arm] Pulse Oximetry 97 96 95 Oxygen Delivery Me thod 06/12/23 18:00 06/12/23 18:02 06/12/23 18:17 Temperature Pulse Rate 77 76 Pulse Rate [Pulse Oximeter] Respiratory Rate Blood Pressure 110/49 L 122/74 Blood Pressure [Le ft Arm] Blood Pressure [Ri ght Upper Arm] Pulse Oximetry 95 96 Oxygen Delivery Me thod 06/12/23 18:18 06/12/23 18:30 06/12/23 18:32 Temperature Pulse Rate 74 74 73 Pulse Rate [Pulse Oximeter] Respiratory Rate Blood Pressure 117/66 Blood Pressure [Le ft Arm] Blood Pressure [Ri ght Upper Arm] Pulse Oximetry 99 94 95 Oxygen Delivery Mo thod 06/12/23 19:27 Temperature 99.1 F Pulse Rate Pulse Rate [Pulse Oximeter] 65 Respiratory Rate 16 Blood Pressure Blood Pressure [Le ft Arm] 135/67 Blood Pressure [Ri ght Upper Arm] Pulse Oximetry 95 Oxygen Delivery Me thod Room Air Hospitalist - H&P: Result Labs Labs: Short CBC 06/12/23 Range/Units 14:15 WBC 4.68 (4.50-11.00) K/uL Hgb 13.9 (12.0-16.0) gm/dL Hct 42.4 (33.0-51.0) % Plt Count 205 (140-440) K/uL BMP 06/12/23 14:15 Sodium 133 L Potassium 3.2 L Chloride 102 Carbon Dioxide 24 BUN 9 Creatinine 0.5 Glucose 85 Calcium 8.9 Cardiac Enzymes 06/12/23 Range/Units 14:15 Troponin I < 0.01 L (0.01-0.04) ng/mL Liver Function 06/12/23 Range/Units 14:15 Total Bilirubin 1.0 (0.1-1.5) mg/dL AST 25 (12-35) U/L ALT 13 (4-35) U/L Alkaline Phosphatase 116 (40-150) U/L Albumin 3.5 (3.3-5.0) g/dL Urine 06/12/23 Range/Units 14:35 Urine Color [place] A (Yellow) Urine Appearance Cloudy A (Clear) Urine pH 7.0 (5.0-8.5) Ur Specific [place] 1.020 (1.000-1.030) Urine Protein 2+ A (Negative) Urine Glucose (UA) Negative (Negative) Assessment and Plan Assessment and plan (1) Contusion of face: Problem comment: - s/p mechanical fall - PT and OT consults Status: Acute (2) Acute UTI: Problem comment: - Ceftriaxone empirically initiated in ED 06/13 - culture pending Status: Acute Plan - per above - SCDs for ppx - daughter updated at bedside, questions answered - back to [facility] (there for rehab following subdural, home is with in [place]) when medically appropriate, possibly as early as tomorrow - DNR/DNI
[2023-06-12] MEDS: LACOSAMIDE 50 MG TABLET 150 MG PO (22:24)
[2023-06-12] MEDS: LIDOCAINE 5% PATCH 1 PATCH TRANSDERMA (22:24)
[2023-06-13 04:53] VITALS: BP 136/81; PULSE 75; RESP 16; TEMP 36.8; O2SAT 97
[2023-06-13 07:39] VITALS: BP 134/90; PULSE 84; RESP 16; TEMP 37.1; O2SAT 93
[2023-06-13] MEDS: POTASSIUM CHLORIDE 10 MEQ CAPSULE ER 20 MEQ PO (09:36)
[2023-06-13] MEDS: ACETAMINOPHEN 325 MG TABLET 650 MG PO (09:36)
[2023-06-13] MEDS: ASPIRIN 81 MG TABLET EC PO (09:36)
[2023-06-13] MEDS: ROSUVASTATIN CALCIUM 10 MG TABLET 40 MG PO (09:37)
[2023-06-13] MEDS: SODIUM CHLORIDE 0.9 % (FLUSH) 10 ML SYRINGE 5 ML IVF (09:38)
[2023-06-13] MEDS: LACOSAMIDE 50 MG TABLET 100 MG PO (09:38)
[2023-06-13] MEDS: AMLODIPINE 10 MG TABLET PO (09:38)
[2023-06-13] MEDS: VALSARTAN 80 MG TABLET 160 MG PO (10:20)
[2023-06-13 10:37] VITALS: BP 153/81; PULSE 94; RESP 16; TEMP 36.4; O2SAT 96
--- NOTE | 2023-06-13 11:05 | PM.DS1 ---
DS: Providers Provider Date Seen: 06/13/23 Date of admission: 06/12/23 18:45 Primary care physician: William Ramsay MD Admitting Clinician: Thi Galindo MD Consults: 06/12/23 21:29 Consult to Physical Therapy [CONS] Routine Comment: Reason(s) for PT Consult:: Balance Assessment Any Restrictions?:: No Restrictions Consult to Field Placement Director [CONS] Routine Comment: Reason for Consult:: Discharge Planning Needs 06/12/23 21:30 Consult to Occupational Therapy [CONS] Routine Comment: Reason(s) for OT Consult:: Evaluate and Treat Any Restrictions?:: No Restrictions 06/13/23 05:11 Consult to Occupational Therapy [CONS] Routine Comment: Reason(s) for OT Consult:: Evaluate and Treat Any Restrictions?:: No Restrictions Consult to Physical Therapy [CONS] Routine Comment: Reason(s) for PT Consult:: Recent Falls Any Restrictions?:: No Restrictions Attending Physician on discharge: HERBERT Cuello, PA-C [facility] Date of Discharge: 06/13/23 DS: Diagnosis Discharge Diagnosis (1) Contusion of face: Status: Acute Problem details: S/p mechanical fall. CT face without evidence of facial fracture, CT head shows no acute intracranial bleed, CT C-spine shows no displaced cervical spine fracture. PT/OT consulted for fall, reported likely back to baseline, able to discharge back to [facility] to resume current therapies. (2) Acute UTI: Status: Acute Problem details: UA is cloudy with 3+ LE, > 100 WBC, many bacteria. Received IV ceftriaxone, transitioned to oral cefpodoxime twice daily to be taken for total of 7 days. Urine culture pending on day of discharge. Follow-up with PCP for resolution (3) Hypokalemia: Status: Acute Problem details: Potassium 3.2 on day of discharge. Discharged with potassium oral supplement to be taken twice daily for 3 days. Recheck in follow-up with PCP. DS: Summary Hospital Course Hospital Course: [age] year old female past medical history significant for tremors, falls, hypertension, CAD was admitted to the medical floor for further management repeat fall in setting of suspected UTI. Course of care and details as noted above. Patient is discharged on oral cefpodoxime for suspected UTI, UC pending. Also discharged with oral potassium supplement for mild hypokalemia. Will need outpatient follow-up with PCP. Remainder of chronic medical comorbidities were monitored and managed with home medications. Status at Discharge Functional status at discharge: uses cane/walker Overall status at discharge: patient is back to baseline Time Spent with Patient Time attestation: Total time spent providing and/or coordinating discharge services: Time spent: Greater than 30 minutes Exam Narrative: Exam Narrative: PHYSICAL EXAM General: Pleasant, conversant, NAD Cardiovascular: RRR Pulmonary: No dyspnea Neurological: Alert, answering questions appropriately Skin: Warm, dry. Const: Vital Signs, click to edit/add: Vital Signs - 24 hr 06/12/23 13:13 06/12/23 13:17 06/12/23 13:18 Temperature 98.8 F Pulse Rate 71 72 Pulse Rate [Pulse Oximeter] 69 Respiratory Rate 14 Blood Pressure 133/76 Blood Pressure [Le ft Arm] Blood Pressure [Ri ght Upper Arm] 137/75 Pulse Oximetry 97 97 97 Oxygen Delivery Me thod Room Air 06/12/23 13:30 06/12/23 13:32 06/12/23 13:33 Temperature Pulse Rate 69 68 68 Pulse Rate [Pulse Oximeter] Respiratory Rate Blood Pressure 65/49 L 118/74 Blood Pressure [Le ft Arm] Blood Pressure [Ri ght Upper Arm] Pulse Oximetry 97 98 98 Oxygen Delivery Me thod 06/12/23 13:33 06/12/23 13:45 06/12/23 14:00 Temperature Pulse Rate 68 70 67 Pulse Rate [Pulse Oximeter] Respiratory Rate Blood Pressure 118/74 Blood Pressure [Le ft Arm] Blood Pressure [Ri ght Upper Arm] Pulse Oximetry 98 97 97 Oxygen Delivery Me thod 06/12/23 14:39 06/12/23 15:17 06/12/23 15:30 Temperature Pulse Rate 71 68 Pulse Rate [Pulse Oximeter] Respiratory Rate Blood Pressure 129/74 Blood Pressure [Le ft Arm] Blood Pressure [Ri ght Upper Arm] Pulse Oximetry 97 96 Oxygen Delivery Me thod 06/12/23 15:31 06/12/23 15:32 06/12/23 15:45 Temperature Pulse Rate 70 67 67 Pulse Rate [Pulse Oximeter] Respiratory Rate Blood Pressure 127/78 Blood Pressure [Le ft Arm] Blood Pressure [Ri ght Upper Arm] Pulse Oximetry 95 96 97 Oxygen Delivery Me thod 06/12/23 16:00 02/26/24 16:02 06/12/23 16:15 Temperature Pulse Rate 67 67 70 Pulse Rate [Pulse Oximeter] Respiratory Rate Blood Pressure 124/79 Blood Pressure [Le ft Arm] Blood Pressure [Ri ght Upper Arm] Pulse Oximetry 97 96 97 Oxygen Delivery Me thod 06/12/23 16:30 06/12/23 16:32 06/12/23 16:45 Temperature Pulse Rate 67 67 68 Pulse Rate [Pulse Oximeter] Respiratory Rate Blood Pressure 130/76 Blood Pressure [Le ft Arm] Blood Pressure [Ri ght Upper Arm] Pulse Oximetry 97 97 97 Oxygen Delivery Me thod 06/12/23 17:00 06/12/23 17:01 06/12/23 17:15 Temperature Pulse Rate 72 76 71 Pulse Rate [Pulse Oximeter] Respiratory Rate Blood Pressure 148/72 H Blood Pressure [Le ft Arm] Blood Pressure [Ri ght Upper Arm] Pulse Oximetry 97 96 98 Oxygen Delivery Me thod 06/12/23 17:30 06/12/23 17:32 06/12/23 17:45 Temperature Pulse Rate 72 72 81 Pulse Rate [Pulse Oximeter] Respiratory Rate Blood Pressure 133/64 Blood Pressure [Le ft Arm] Blood Pressure [Ri ght Upper Arm] Pulse Oximetry 97 96 95 Oxygen Delivery Me thod 06/12/23 18:00 06/12/23 18:02 06/12/23 18:17 Temperature Pulse Rate 77 76 Pulse Rate [Pulse Oximeter] Respiratory Rate Blood Pressure 110/49 L 122/74 Blood Pressure [Le ft Arm] Blood Pressure [Ri ght Upper Arm] Pulse Oximetry 95 96 Oxygen Delivery Me thod 06/12/23 18:18 06/12/23 18:30 06/12/23 18:32 Temperature Pulse Rate 74 74 73 Pulse Rate [Pulse Oximeter] Respiratory Rate Blood Pressure 117/66 Blood Pressure [Le ft Arm] Blood Pressure [Ri ght Upper Arm] Pulse Oximetry 99 94 95 Oxygen Delivery Me thod 06/12/23 19:27 06/12/23 23:00 06/13/23 04:53 Temperature 99.1 F 97 F L 98.2 F Pulse Rate Pulse Rate [Pulse Oximeter] 65 75 75 Respiratory Rate 16 16 16 Blood Pressure Blood Pressure [Le ft Arm] 135/67 118/83 136/81 Blood Pressure [Ri ght Upper Arm] Pulse Oximetry 95 97 97 Oxygen Delivery Me thod Room Air Room Air Room Air 06/13/23 07:39 06/13/23 10:37 Temperature 98.7 F 97.6 F Pulse Rate Pulse Rate [Pulse Oximeter] 84 94 Respiratory Rate 16 16 Blood Pressure Blood Pressure [Le ft Arm] 134/90 H 153/81 H Blood Pressure [Ri ght Upper Arm] Pulse Oximetry 93 96 Oxygen Delivery Me thod Room Air Room Air DS: Data Data Completed and Pending Labs on day of discharge: Labs from last 24 hours 06/12/23 06/12/23 06/12/23 14:35 14:15 14:05 WBC 4.68 RBC 4.68 Hgb 13.9 Hct 42.4 MCV 91 MCH 30 MCHC 33 RDW Coeff of Abdi 14.2 Plt Count 205 Neut % (Auto) 63.1 Lymph % (Auto) 22.2 [place] % (Auto) 10.9 Eos % (Auto) 3.4 Baso % (Auto) 0.2 Neut # (Auto) 2.95 Lymph # (Auto) 1.04 [place] # (Auto) 0.50 Eos # (Auto) 0.16 Baso # (Auto) 0.01 Abs Immat Gran (auto) 0.01 Imm/Tot Granulo (auto) 0.2 Sodium 133 L Potassium 3.2 L Chloride 102 Carbon Dioxide 24 Anion Gap 7 BUN 9 Creatinine 0.5 Estimated Creat Clear 40.29 Estimated GFR 98 Glucose 85 Lactate 1.1 Calcium 8.9 Total Bilirubin 1.0 AST 25 ALT 13 Alkaline Phosphatase 116 Troponin I < 0.01 L C-Reactive Protein 0.7 Total Protein 6.5 Albumin 3.5 Urine Color [place] A Urine Appearance Cloudy A Urine pH 7.0 Ur Specific [place] 1.020 Urine Protein 2+ A Urine Glucose (UA) Negative Urine Ketones Trace A Urine Blood 3+ A Urine Nitrite Negative Urine Bilirubin 1+ A Urine Urobilinogen 2.0 A Ur Leukocyte Esterase 3+ A Urine RBC >100 A Urine WBC >100 A Ur Squamous Epith Cells Few Urine Bacteria Many A SARS-CoV-2 (PCR) Negative SARS-CoV-2 Influenza Type A (PCR) Negative PCR FLU A Influenza Type B (PCR) Negative PCR FLU B RSV (PCR) Negative PCR RSV Preliminary micro results at discharge 06/12/23 Unknown Urine Culture - Preliminary Urine,Clean Catch Discharge Plan Discharge Disposition: Xfer SNF Discharge Location: [facility] Date of Admission: 06/12/23 18:45 Attending Provider on Discharge: Tiffanie Chaudhary Primary Care Provider: William Ramsay Condition: Improved Anticipated Discharge Date/Time: 06/13/23 10:58 Discharge Medications: New potassium chloride 10 mEq Capsule, Extended Release 20 meq PO BIDWM Qty: 6 0RF cefpodoxime 100 mg tablet 100 mg PO BID Qty: 14 0RF Rx Instructions: must administer with a meal/food Continued acetaminophen [Tylenol] 325 mg capsule 650 mg PO Q6H PRN lacosamide 50 mg tablet 50 mg PO .COMPLEX Rx Instructions: 50 mg orally 2 tabs in morning, 3 tabs in evening; sennosides-docusate sodium [Senna with Docusate Sodium] 8.6-50 mg tablet 1 tab-cap PO BID valsartan 160 mg tablet 160 mg PO BID amlodipine 10 mg tablet 10 mg PO DAILY aspirin 81 mg capsule 81 mg PO DAILY propranolol 60 mg capsule,extended release 24 hr 60 mg PO BID alendronate 70 mg tablet 70 mg PO QWEEK lidocaine 5 % adhesive patch,medicated 1 patch topical Q24H Rx Instructions: leave on most painful area for up to 12 hrs nitroglycerin [Nitrostat] 0.4 mg tablet, sublingual 0.4 mg sublingual Q5M PRN Rx Instructions: do not exceed 3 doses per episode ondansetron 4 mg tablet,disintegrating 4 mg PO Q8-12H PRN rosuvastatin 40 mg capsule, sprinkle 40 mg PO DAILY Discharge Orders: Discharge Order (Routine); Ordered 06/13/23 Ordered By: Tiffanie Chaudhary Additional Instructions: You have been started on an oral antibiotic, cefpodoxime, for your urinary tract infection. Urine culture pending at time of discharge. Your potassium on day of discharge is 3.2. Continue to take an oral potassium supplement as prescribed twice daily for the next 3 days. Resume current therapies as previously ordered prior to this hospitalization. Activity Level: Activity as Tolerated and Use Walker Activity Detail: Per PT/OT Discharge Diet: Regular Follow Up Appointments: William Ramasy MD [Primary Care Provider] - 06/23/23 (Post hospital follow-up, repeat fall, UTI, UC pending) Forms: [facility] Info Instructions Admit to: SNF Discharge Potential: Fair Length of Stay: <30 days Can use facility standing orders?: Yes Code Status: DNR/DNI TEDs: Bilateral Knee Rehab Potential: Fair Therapy: Physical Therapy and Occupational Therapy Therapy Orders: Evaluate and Treat Oxygen: No Urinary Catheter: No Orders are good >30 days: No Signature: HERBERT Cuello, PADandreC [facility]
--- NOTE | 2023-06-13 11:06 | PC.SOCIAL ---
Discharge planning: Per MD note, pt lives at [facility]. Called [facility] and left message requesting call back to confirm pt is on a bed hold from that facility. Met with pt who states she lives in [place]. Pt states her daughter is on her way into the hospital to visit. Attempted to call daughter, but the voicemail was full and a message could not be left. vineyard worker to follow up as needed.
--- NOTE | 2023-06-13 12:44 | NUTR.NU ---
RDN with nutrition screen related to underweight BMI and positive MST score for weight loss recently and poor appetite. Patient discharged before RDN could visit and assess patient. Patient lives at [address] [place] [address].
--- NOTE | 2023-06-13 13:38 | PC.NURSE ---
Discharge: Patient pleasant and cooperative. Up with SBA and walker. Vitals stable and WNL. Tolerating regular diet well, poor appetite. Daughter in room during discharge for insturctions. IV removed with catheter intact. Alert and oriented. Patient discharged back to [facility] via private car @ 1308.
== END 2023-06-13 13:04 ==
LOC: ED 17:20 → MEDSURG 18:45
PROVIDERS: Admitting Provider Family Medicine; Emergency Provider Family Medicine; PCP Family Medicine; Visit Provider Family Medicine
DX: N39.0 Urinary tract infection, site not specified (principal); S00.83XA Contusion of other part of head, initial encounter; S00.11XA Contusion of right eyelid and periocular area, initial encounter; R29.6 Repeated falls; E87.6 Hypokalemia; I25.10 Atherosclerotic heart disease of native coronary artery without angina pectoris; I10 Essential (primary) hypertension; G40.909 Epilepsy, unspecified, not intractable, without status epilepticus; F12.90 Cannabis use, unspecified, uncomplicated; G25.0 Essential tremor; L53.8 Other specified erythematous conditions; Z79.82 Long term (current) use of aspirin; Z86.79 Personal history of other diseases of the circulatory system; Z98.890 Other specified postprocedural states; Z95.5 Presence of coronary angioplasty implant and graft; Z90.49 Acquired absence of other specified parts of digestive tract; Z66 Do not resuscitate
CPT/HCPCS: 36415; 70450; 70486; 71045; 72125; 80053; 81001; 83605; 84484; 85025; 86140; 87081; 87086; 87631; 93005; 94761; 96365; 97116; 97161; 97165; 99284; 99285; A9270; G0378; J0696

== ENCOUNTER 2023-06-26 16:50 | Outpatient (CLI) | payer BC, SELFPAY | END 2023-06-26 16:51 | disposition home or self-care (01) | LOC: AMB 06-29 11:22 | PROVIDERS: PCP Family Medicine; Visit Provider Student in an Organized Health Care Education/Training Program | DX: S69.92XA Unspecified injury of left wrist, hand and finger(s), initial encounter (principal); S09.93XA Unspecified injury of face, initial encounter; W19.XXXA Unspecified fall, initial encounter; Y92.099 Unspecified place in other non-institutional residence as the place of occurrence of the external cause | CPT/HCPCS: A0425; A0429 ==

== ENCOUNTER 2023-06-26 17:15 | Emergency (ER) | payer BC, SELFPAY ==
[2023-06-26] VITALS (41 sets, daily range): BP systolic 108–157; BP diastolic 64–140; PULSE 72–85; RESP 20; TEMP 36.7; O2SAT 78–100
--- NOTE | 2023-06-26 17:15 | XR_ITS ---
Patient: DARIUS ALCANTAR Facility:?[facility] Patient ID:?[id number] Site Patient ID:?[id number]. Site :?[id number] Study:?XRay-Shoulder Left code trauma - 3 view-06/26/2023 5:48:23 PM Ordering Physician:Haley Matthews Final Report: Indication: Fall Technique: Three views of the left shoulder. Comparison: None. Findings: Partial visualization of coronary artery stent and aortic calcifications. Moderate degenerative changes of the glenohumeral joint. Osteopenia. No acute displaced fracture or malalignment. Impression: No acute displaced fracture or malalignment. Dictated by Vasquez Najera MD @ 06/26/2023 6:02:44 PM Signed by:?Vasquez Najera MD @06/26/2023 6:02:44 PM (Electronic Signature)
--- NOTE | 2023-06-26 17:15 | CT_ITS ---
Patient: DARIUS ALCANTAR Facility:?[facility] Patient ID:?[id number] Site Patient ID:?[id number]. Site :?[id number] Study:?CT-Facial code trauma - w/o-06/26/2023 5:41:24 PM Ordering Physician:Haley Matthews Final Report: Indication: Fall Technique: Volumetric multidetector CT images of the facial bones were obtained without the administration of IV contrast. Comparison: CT facial bones June 12, 2023 Findings: The partially visualized brain is normal in attenuation without evidence of midline shift or fluid collection. The paranasal sinuses are clear without evidence of air-fluid level. There is marked left periorbital, preseptal soft tissue swelling and hematoma. There is no evidence of underlying orbital osseous injury. The zygomatic arches are grossly intact. The bilateral maxillae are intact. The pterygoid plates are grossly intact. The nasal bones and anterior nasal spine are intact without displaced fracture. The mandible is grossly well located. The partially visualized cervical spine is grossly intact without displaced fracture. Impression: Marked left periorbital, preseptal soft tissue swelling and hematoma without evidence of underlying facial bony injury. Please note that all CT scans at this facility use dose modulation, iterative reconstruction, and/or weight-based dosing when appropriate to reduce radiation dose to as low as reasonably achievable. Dictated by Jin Schmidt MD @ 06/26/2023 6:11:45 PM Signed by:?Jin Schmidt MD @06/26/2023 6:11:45 PM (Electronic Signature)
--- NOTE | 2023-06-26 17:15 | XR_ITS ---
Patient: DARIUS ALCANTAR Facility:?[facility] Patient ID:?[id number] Site Patient ID:?[id number]. Site :?[id number] Study:?XRay-Chest code trauma - 1 view-06/26/2023 5:47:57 PM Ordering Physician:Haley Matthews Final Report: INDICATION: Fall. TECHNIQUE: Chest 1 view. COMPARISON: Chest radiograph 06/12/2023. FINDINGS: No focal consolidation, pleural effusion, or pneumothorax. Calcified granuloma medial right lung base. Normal heart size and pulmonary vascularity. Aortic calcifications. Surgical clips right upper quadrant. No acute osseous abnormality identified. IMPRESSION: No acute cardiopulmonary findings. Dictated by Edel Mayfield MD @ 06/26/2023 6:04:16 PM Signed by:?Edel Mayfield MD @06/26/2023 6:04:16 PM (Electronic Signature)
--- NOTE | 2023-06-26 17:16 | CT_ITS ---
Patient: DARIUS ALCANTAR Facility:?[facility] Patient ID:?[id number] Site Patient ID:?[id number]. Site :?[id number] Study:?CT-Spine Cervical code trauma - w/o-06/26/2023 5:41:48 PM Ordering Physician:Haely Matthews Final Report: Indication: Fall Technique: Volumetric multidetector CT images of the cervical spine were obtained without the administration of IV contrast. Comparison: CT cervical spine June 12, 2023 Findings: Overall, somewhat limited exam due to noninclusion of the entire C6, C7 and T1 levels. Otherwise, the visualized cervical vertebral body heights are grossly maintained and stable from previous exam with minimal endplate subchondral cystic changes. There is minimal anterolisthesis of C4 on C5. There is no displaced fracture or dislocation. There is [id number] degenerative disc disease. There is moderate facet arthrosis. The paraspinous soft tissues are grossly within normal limits. Impression: Overall, somewhat limited due to noninclusion of the entire cervical spine, missing the entirety of C7 and T1 and partial nonvisualization of the anteroinferior C6 level. Otherwise, stable degenerative changes of the cervical spine without definite acute osseous abnormality. Please note that all CT scans at this facility use dose modulation, iterative reconstruction, and/or weight-based dosing when appropriate to reduce radiation dose to as low as reasonably achievable. Dictated by Jin Schmidt MD @ 06/26/2023 6:07:34 PM Signed by:?Jin Schmidt MD @06/26/2023 6:07:34 PM (Electronic Signature)
--- NOTE | 2023-06-26 17:16 | CT_ITS ---
Patient: DARIUS ALCANTAR Facility:?[facility] Patient ID:?[id number] Site Patient ID:?[id number]. Site :?1950 Study:?CT-Head code trauma - w/o-06/26/2023 5:41:01 PM Ordering Physician:Haley Matthews Final Report: Indication: Fall Technique: Volumetric multidetector CT images of the head were obtained without the administration of low osmolar intravenous contrast. Comparison: CT head June 12, 2023 Findings: Previously seen minimal left-sided subdural fluid has significantly decreased from comparison with a trace amount of residual chronic subdural hygroma. No evidence of new acute intra-axial or extra-axial hemorrhage. There is no mass effect or midline shift. There is age-related cortical atrophy with mild sulcal widening and ex vacuo dilatation of the lateral ventricles. There are chronic small vessel disease changes in the subcortical and periventricular white matter without lost worrell-white differentiation. There is moderate left periorbital, preseptal soft tissue swelling. Otherwise the orbits and their contents are grossly within normal limits. There is a renato hole in the left parietal calvarium with mild superficial soft tissue swelling. The paranasal sinuses are clear. The mastoid air cells are well aerated. Impression: Previously seen minimal left-sided subdural fluid has significantly decreased from previous exam with trace residual subdural hygroma. Moderate left periorbital, preseptal soft tissue swelling and hematoma without evidence of new acute intracranial abnormality. Please note that all CT scans at this facility use dose modulation, iterative reconstruction, and/or weight-based dosing when appropriate to reduce radiation dose to as low as reasonably achievable. Dictated by Jin Schmidt MD @ 06/26/2023 6:03:31 PM Signed by:?Jin Schmidt MD @06/26/2023 6:03:31 PM (Electronic Signature)
--- NOTE | 2023-06-26 17:21 | ED_ITS ---
HPI - Fall General Date Seen: 06/26/23 Chief Complaint: Fall/Minor Trauma Stated Complaint: Fall Time Seen by Provider: 06/26/23 17:19 Source: patient, EMS, RN notes reviewed and old records reviewed Mode of arrival: EMS Limitations: altered mental status History of Present Illness HPI Narrative: 72-year-old female was brought in from [address] [place] [address] with an unwitnessed fall by EMS. She had new left facial bruising, complain of head pain with unwitnessed fall. They found her back in her chair. It is unknown actually the mechanism of fall or when it happened. This patient definitely seems to have diminished level of consciousness, she is independently breathing, maintain her own airway but is certainly not as conversive and alert as a previous visit when I saw her on June 12. She was in for a fall on that visit as well. They do noted a new skin tear today on her left arm and a few on her right hand. She is telling me that her neck hurts ?a little?, this is when I question her on neck pain. She does state her head hurts. She is certainly not is conversive EM and talkative and has when I remember her. She had a subdural hematoma which was treated at [place], do not know date but it was before my visit on June 12. It is notable that this patient definitely seemed confused and was giving different history is as to the events of her fall in June 12. She definitely was alert on June 12 and seems sleepy as stated today. Was treated for UTI on June 12 but UC was not confirmatory of this. MD complaint: fall Related Data Home Medications Medication Instructions Recorded Confirmed acetaminophen 325 mg capsule 650 mg PO Q6H PRN 06/12/23 06/26/23 (Tylenol) alendronate 70 mg tablet 70 mg PO QWEEK 06/12/23 06/26/23 amlodipine 10 mg tablet 10 mg PO DAILY 06/12/23 06/26/23 aspirin 81 mg capsule 81 mg PO DAILY 06/12/23 06/26/23 lacosamide 50 mg tablet 50 mg PO .COMPLEX 06/12/23 06/26/23 lidocaine 5 % topical patch 1 patch topical Q24H 06/12/23 06/12/23 nitroglycerin 0.4 mg sublingual 0.4 mg sublingual Q5M PRN 06/12/23 06/26/23 tablet (Nitrostat) ondansetron 4 mg disintegrating 4 mg PO Q8-12H PRN 06/12/23 06/26/23 tablet propranolol 60 mg capsule,24 60 mg PO BID 06/12/23 06/26/23 hr,extended release rosuvastatin 40 mg sprinkle capsule 40 mg PO DAILY 06/12/23 06/26/23 sennosides 8.6 mg-docusate sodium 1 tab-cap PO BID 06/12/23 06/26/23 50 mg tablet (Senna with Docusate Sodium) valsartan 160 mg tablet 160 mg PO BID 06/12/23 06/26/23 oxycodone 5 mg tablet 2.5 mg PO Q6H PRN 06/26/23 06/26/23 Previous Rx's Medication Instructions Recorded cefpodoxime 100 mg tablet 100 mg PO BID #14 tabs 06/13/23 potassium chloride 10 mEq 20 meq (2 x 10 mEq) PO BIDWM #6 06/13/23 capsule,extended release caps Allergies Allergy/AdvReac Type Severity Reaction Status Date / Time amoxicillin Allergy Severe Anaphylaxis Verified 06/12/23 13:35 annelise Allergy Severe Anaphylaxis Verified 06/12/23 13:35 pineapple Allergy Severe Anaphylaxis Verified 06/12/23 13:35 prednisone Allergy Intermediate Rash Verified 06/12/23 13:35 testosterone Allergy Intermediate Rash Verified 06/12/23 13:35 latex Allergy Unknown Verified 06/12/23 13:35 egg AdvReac Mild Headache Verified 06/12/23 13:35 Review of Systems Status of ROS: Reports: unobtainable due to mental status Narrative: Does not seem like patient is a reliable historian for review of systems at this time, is seeming more sleepy. [facility] Medical History Seizure disorder ?G40.909 - Epilepsy, unspecified, not intractable, without status epilepticus (ICD-10) Essential tremor ?G25.0 - Essential tremor (ICD-10) Essential hypertension ?I10 - Essential (primary) hypertension (ICD-10) CAD (coronary artery disease) ?I25.10 - Atherosclerotic heart disease of [place] coronary artery without angina pectoris (ICD-10) Surgical History History of renato hole surgery ?Z98.890 - Other specified postprocedural states (ICD-10) H/O heart artery stent ?Z95.5 - Presence of coronary angioplasty implant and graft (ICD-10) S/P cholecystectomy ?Z90.49 - Acquired absence of other specified parts of digestive tract (ICD- 10) Social History Narrative: Lives with in [place], one adult daughter (they would share MDM if needed). DNR/DNI. Nonsmoker, no ETOH. Currently (05/2023) at [facility] following a subdural hematoma requiring [place] evacuation. What is your current living situation?: I presently have a place to live Problems where you live: no known problems Problems where you live details: N/A In the past 12 months, utilities in danger of being shut off: no In past 12 months, lack of transportation kept you from medical appts, meetings, work, or getting things needed for daily living: no In the past 12 mos, have been you worried that your food would run out before you had money to buy more?: never true In the past 12 mos, the food you bought just didn't last and you didn't have money to buy more?: never true Smoking Status: Never smoker How often do you have a drink containing alcohol: never AUDIT-C Alcohol total score: 0 Non-prescribed substance use: marijuana (any form) Caffeine: No How often does anyone, including family, friends and others, physically hurt you : never How often does anyone, including family, friends and others, insult or talk down to you: never How often does anyone, including family, friends and others, threaten you with harm: never How often does anyone, including family, friends and others, scream or curse at you: never service: No Exam Const: Vital Signs, click to edit/add: Vital Signs - 24 hr 06/26/23 17:20 06/26/23 17:22 06/26/23 17:23 Temperature 98.0 F Pulse Rate 85 79 Pulse Rate [Pulse Oximeter] 78 Respiratory Rate 20 Blood Pressure 157/86 H Blood Pressure [Ri ght Upper Arm] 157/86 H Pulse Oximetry 78 L 99 92 Oxygen Delivery Me thod Room Air 06/26/23 17:51 06/26/23 17:52 06/26/23 18:00 Temperature Pulse Rate 80 80 83 Pulse Rate [Pulse Oximeter] Respiratory Rate Blood Pressure 152/86 H Blood Pressure [Ri ght Upper Arm] Pulse Oximetry 97 96 94 Oxygen Delivery Me thod 06/26/23 18:02 06/26/23 18:09 06/26/23 18:10 Temperature Pulse Rate 82 80 Pulse Rate [Pulse Oximeter] Respiratory Rate Blood Pressure 149/72 H Blood Pressure [Ri ght Upper Arm] Pulse Oximetry 98 99 97 Oxygen Delivery Me thod 06/26/23 18:12 06/26/23 18:20 06/26/23 18:22 Temperature Pulse Rate 81 83 80 Pulse Rate [Pulse Oximeter] Respiratory Rate Blood Pressure 152/140 H 138/80 Blood Pressure [Ri ght Upper Arm] Pulse Oximetry 95 99 92 Oxygen Delivery Me thod 06/26/23 18:30 06/26/23 18:32 Temperature Pulse Rate 76 75 Pulse Rate [Pulse Oximeter] Respiratory Rate Blood Pressure 138/75 Blood Pressure [Ri ght Upper Arm] Pulse Oximetry 99 99 Oxygen Delivery Me thod Patient is moaning sometimes, will open her eyes. Does attempt to talk in response to questions but then closes her eyes again. She has obvious significant bruising and swelling around the left eye. I am able to open the lid, this does seem to cause her some pain but underlying sclera is clear, she has conjugate gaze, pupils are equal and round. Seems to have symmetrical facial function. No drainage from ears or nares. She has old scarring along the left parietal occipital area of the scalp from her prior renato hole. I see no acute traumatic changes on her scalp currently. No palpable tenderness of her neck but does complain of some pain in her neck, unable to differentiate. Lungs are clear, CV regular rate and rhythm, no murmur. Is noted to complain of pain any time her left arm is moved, maybe isolating to the shoulder per nursing staff. She has a large skin tear just above the elbow laterally on her left arm. Some dried blood on her right hand, 2 small skin tears noted in the interdigital webspace of the 1st and 2nd fingers. No active bleeding noted of these wounds. Abdomen seems to be soft, nondistended. With her arms down at her sides, will store host hands, 3/5 symmetrical hand store host strength. She will follow commands, does attempt to lift her legs off the bed, really only gets either leg about a cm to off the bed and is not holding it up prolonged. Will wiggle toes on each foot when asked to do so. Would give GCS 14/15. Primary and secondary survey done consecutively. On my primary survey found a sleepy but arousable patient, hemodynamically stable, no active bleeding, maintaining her own airway. Documenting provider has reviewed patient's vital signs: yes Course Course ED Course: Trauma team activation was called by nursing staff and myself after patient's arrival. I a have had the for chin of meeting her before in do note that her level of consciousness seems to be diminished, certainly sleepy from my prior visit on June 12. We will be obtaining stat imaging of her head, facial series as well as cervical spine. We will look at the upper humerus and left shoulder with plain imaging, portable chest x-ray. She also had a UTI on June 12, need to consider infectious etiology in other considerations for altered level of consciousness such as infectious etiology, metabolic derangements. She will be monitored, will follow closely. Reevaluation(s) Time of Reevaluation #1: 18:50 Reevaluation #1: Nursing staff reports that patient is more alert, complaining of pain in wanting pain medicine. Have ordered 650 mg oral Tylenol. Will be in shortly to talk to her and her , update on negative imaging studies. Time of Reevaluation #2: 19:34 Reevaluation #2: Patient is back to baseline from what I remember her on June 12. She know she is at the hospital, would assess her GCS to be 15/15 at this time. Reviewed the negative imaging. Her is present today, reviewed with him that we are waiting the rest of the lab results. We do not have a urinalysis but given her urine culture ended up being negative last time, I am less concerned about having this rechecked. Her he is worried about pain management. Did re-evaluate her shoulder, seems to have pain when I get her shoulder above 90? on the left side, feel no crepitus. See no bruising or ecchymosis. The nursing staff have cleaned and placed a Tegaderm over her skin tear on the left arm. Her back is inspected, she is able to sit up on her own. No traumatic changes. I have reviewed with patient and her that if nothing else is coming up on the labs, we do not have an indication for hospitalization. He seems a bit concerned about this. I did review with him that Medicare will not pay for hospitalization unless there is an indication. She does have a significant left facial hematoma but no underlying fracture. This can be managed conservatively with Tylenol and ice at the assisted. She is in the assisted and thus will have nursing care there. Of note, patient is having significant right arm resting tremor at this time. Time of Reevaluation #3: 20:54 Reevaluation #3: Have reviewed my conversation with Dr. Villa. We did discuss ice, she is tolerating it, she states she feels it is already helped her facial swelling go down. Reviewed that the triple swab was negative. Consultations Consultation #1: Reviewed with Dr. Villa the hospitalist. She sees no indication for hospitalization. Did recommend that they review with the assisted to see if there is any other increased benefits for this patient given her falls. Time: 20:51 Vital Signs Vital signs: Initial Vital Signs Pulse Rate 85 06/26/23 17:20 Blood Pressure 157/86 H 06/26/23 17:20 Blood Pressure Mean 109 H 06/26/23 17:20 Pulse Oximetry 78 L 06/26/23 17:20 Vital Signs Pulse Rate 85 06/26/23 17:20 Blood Pressure 157/86 H 06/26/23 17:20 Pulse Oximetry 78 L 06/26/23 17:20 Temperature 98.0 F 06/26/23 17:23 Pulse Rate 77 06/26/23 21:20 Respiratory Rate 20 06/26/23 17:23 Blood Pressure 112/80 06/26/23 21:02 Pulse Oximetry 98 06/26/23 21:20 Oxygen Delivery Method Room Air 06/26/23 17:23 Medications Administered Medications: Discontinued Medications Generic Name Dose Route Start Last Admin Trade Name Freq PRN Reason Stop Dose Admin Acetaminophen 650 mg 06/26/23 18:50 06/26/23 18:57 Acetaminophen 325 Mg Tablet PO 06/26/23 18:51 650 mg ONCE ONE Administration - Fall Lab Data Attestation: I reviewed the patient's lab results. Labs: Lab Results 06/26/23 06/26/23 Range/Units 18:00 18:25 WBC 6.31 (4.50-11.00) K/uL RBC 4.25 (4.00-5.20) m/uL Hgb 12.5 (12.0-16.0) gm/dL Hct 38.2 (33.0-51.0) % MCV 90 (80-100) fL MCH 29 (26-34) pg MCHC 33 (32-36) gm/dL RDW Coeff of Abdi 13.1 (11.5-15.5) % Plt Count 206 (140-440) K/uL Neut % (Auto) 64.3 (42.0-72.0) % Lymph % (Auto) 24.6 (20-44) % Gosper % (Auto) 9.0 (0.0-11.0) % Eos % (Auto) 1.3 (0.0-7.0) % Baso % (Auto) 0.3 (0.0-3.0) % Neut # (Auto) 4.06 (1.7-7.0) K/uL Lymph # (Auto) 1.55 (0.90-2.90) K/uL Gosper # (Auto) 0.60 (0.00-0.90) K/UL Eos # (Auto) 0.08 (0.00-0.50) K/uL Baso # (Auto) 0.02 (0.00-0.30) K/uL Abs Immat Gran (auto) 0.03 (0.00-0.30) K/uL Imm/Tot Granulo (auto) 0.5 % Sodium 137 (135-149) mmol/L Potassium 3.6 (3.6-5.1) mmol/L Chloride 107 (96-114) mmol/L Carbon Dioxide 24 (20-32) mmol/L Anion Gap 6 L (7-15) mEq/L BUN 15 (7-30) mg/dL Creatinine 0.5 (0.5-1.5) mg/dL Estimated GFR 98 ml/min Glucose 87 (60-115) mg/dL Lactate 1.2 (0.5-1.9) mmol/L Calcium 8.9 (8.4-10.6) mg/dL Total Bilirubin 0.6 (0.1-1.5) mg/dL AST 26 (12-35) U/L ALT 17 (4-35) U/L Alkaline Phosphatase 80 (40-150) U/L Troponin I < 0.01 L (0.01-0.04) ng/mL C-Reactive Protein < 0.5 L (0.5-1.0) mg/dL Total Protein 6.9 (6.0-8.3) g/dL Albumin 3.8 (3.3-5.0) g/dL Procalcitonin 0.05 (<0.50) ng/mL SARS-CoV-2 (PCR) Negative SARS-CoV-2 (Negative) Influenza Type A (PCR) Negative PCR FLU A (Negative) Influenza Type B (PCR) Negative PCR FLU B (Negative) RSV (PCR) Negative PCR RSV (Negative) Imaging Data CT scan - head: Attestation: I have reviewed the pertinent imaging results. Radiologist's impression: Patient: DARIUS ALCANTAR Facility:?[facility] Patient ID:?[id number] Site Patient ID:?[id number]. Site :?1950 Study:?CT Head code trauma - w/o-06/26/2023 5:41:01 PM Ordering Physician:Haley Matthews Final Report: Indication: Fall Technique: Volumetric multidetector CT images of the head were obtained without the administration of low osmolar intravenous contrast. Comparison: CT head June 12, 2023 Findings: Previously seen minimal left-sided subdural fluid has significantly decreased from comparison with a trace amount of residual chronic subdural hygroma. No evidence of new acute intra-axial or extra-axial hemorrhage. There is no mass effect or midline shift. There is age-related cortical atrophy with mild sulcal widening and ex vacuo dilatation of the lateral ventricles. There are chronic small vessel disease changes in the subcortical and periventricular white matter without lost worrell-white differentiation. There is moderate left periorbital, preseptal soft tissue swelling. Otherwise the orbits and their contents are grossly within normal limits. There is a renato hole in the left parietal calvarium with mild superficial soft tissue swelling. The paranasal sinuses are clear. The mastoid air cells are well aerated. Impression: Previously seen minimal left-sided subdural fluid has significantly decreased from previous exam with trace residual subdural hygroma. Moderate left periorbital, preseptal soft tissue swelling and hematoma without evidence of new acute intracranial abnormality. Please note that all CT scans at this facility use dose modulation, iterative reconstruction, and/or weight-based dosing when appropriate to reduce radiation dose to as low as reasonably achievable. Dictated by Jin Schmidt MD @ 06/26/2023 6:03:31 PM (Electronic Signature) CT cervical spine: Attestation: I have reviewed the pertinent imaging results. Radiologist's impression: Patient: DARIUS ALCANTAR Facility:?[facility] Patient ID:?[id number] Site Patient ID:?[id number]. Site :?1950 Study:?CT Spine Cervical code trauma - w/o-06/26/2023 5:41:48 PM Ordering Physician:Haley Matthews Final Report: Indication: Fall Technique: Volumetric multidetector CT images of the cervical spine were obtained without the administration of IV contrast. Comparison: CT cervical spine June 12, 2023 Findings: Overall, somewhat limited exam due to noninclusion of the entire C6, C7 and T1 levels. Otherwise, the visualized cervical vertebral body heights are grossly maintained and stable from previous exam with minimal endplate subchondral cystic changes. There is minimal anterolisthesis of C4 on C5. There is no displaced fracture or dislocation. There is [id number] degenerative disc disease. There is moderate facet arthrosis. The paraspinous soft tissues are grossly within normal limits. Impression: Overall, somewhat limited due to noninclusion of the entire cervical spine, missing the entirety of C7 and T1 and partial nonvisualization of the anteroinferior C6 level. Otherwise, stable degenerative changes of the cervical spine without definite acute osseous abnormality. Please note that all CT scans at this facility use dose modulation, iterative reconstruction, and/or weight-based dosing when appropriate to reduce radiation dose to as low as reasonably achievable. Dictated by Jin Schmidt MD @ 06/26/2023 6:07:34 PM (Electronic Signature) CT facial bones: Attestation: I have reviewed the pertinent imaging results. Radiologist's impression: Patient: DARIUS ALCANTAR Facility:?[facility] Patient ID:?[id number] Site Patient ID:?[id number]. Site :?1950 Study:?CT Facial code trauma - w/o-06/26/2023 5:41:24 PM Ordering Physician:Haley Matthews Final Report: Indication: Fall Technique: Volumetric multidetector CT images of the facial bones were obtained without the administration of IV contrast. Comparison: CT facial bones June 12, 2023 Findings: The partially visualized brain is normal in attenuation without evidence of midline shift or fluid collection. The paranasal sinuses are clear without evidence of air-fluid level. There is marked left periorbital, preseptal soft tissue swelling and hematoma. There is no evidence of underlying orbital osseous injury. The zygomatic arches are grossly intact. The bilateral maxillae are intact. The pterygoid plates are grossly intact. The nasal bones and anterior nasal spine are intact without displaced fracture. The mandible is grossly well located. The partially visualized cervical spine is grossly intact without displaced fra cture. Impression: Marked left periorbital, preseptal soft tissue swelling and hematoma without evidence of underlying facial bony injury. Please note that all CT scans at this facility use dose modulation, iterative reconstruction, and/or weight-based dosing when appropriate to reduce radiation dose to as low as reasonably achievable. Dictated by Jin Schmidt MD @ 06/26/2023 6:11:45 PM (Electronic Signature) Chest x-ray: Attestation: I have reviewed the pertinent imaging results. Radiologist's impression: Patient: DARIUS ALCANTAR Facility:?[facility] Patient ID:?[id number] Site Patient ID:?[id number]. Site :?1950 Study:?XRay Chest code trauma - 1 view-06/26/2023 5:47:57 PM Ordering Physician:Haley Matthews Final Report: INDICATION: Fall. TECHNIQUE: Chest 1 view. COMPARISON: Chest radiograph 06/12/2023. FINDINGS: No focal consolidation, pleural effusion, or pneumothorax. Calcified granuloma medial right lung base. Normal heart size and pulmonary vascularity. Aortic calcifications. Surgical clips right upper quadrant. No acute osseous abnormality identified. IMPRESSION: No acute cardiopulmonary findings. Dictated by Edel Mayfield MD @ 06/26/2023 6:04:16 PM (Electronic Signature) XR left shoulder: Attestation: I have reviewed the pertinent imaging results. Radiologist's impression: Patient: DARIUS ALCANTAR Facility:?[facility] Patient ID:?[id number] Site Patient ID:?[id number]. Site :?1950 Study:?XRay Shoulder Left code trauma - 3 view-06/26/2023 5:48:23 PM Ordering Physician:?Estephania Matthews Final Report: Indication: Fall Technique: Three views of the left shoulder. Comparison: None. Findings: Partial visualization of coronary artery stent and aortic calcifications. Moderate degenerative changes of the glenohumeral joint. Osteopenia. No acute displaced fracture or malalignment. Impression: No acute displaced fracture or malalignment. Dictated by Vasquez Najera MD @ 06/26/2023 6:02:44 PM (Electronic Signature) ECG Data Attestation: I personally reviewed and interpreted this ECG as follows: (EKG shows normal sinus rhythm, rate 79 beats per minute. She has nonspecific T-wave abnormality, seems to be similar to EKG from June 12.) ECG interpretation date: 06/26/23 ECG interpretation time: 18:34 Prior ECG tracings: available for review Discharge Plan Discharge Clinical Impression: Periorbital hematoma of left eye, Skin tear of left upper extremity Fall Qualifiers: Encounter type: initial encounter Qualified Code(s): W19.XXXA - Unspecified fall, initial encounter Patient Disposition: Home w/ Parent or Adult Condition: Stable Instructions: Skin Tear (ED), Hematoma (ED) Additional Instructions: Follow assisted protocol for skin tear management. Continue to ice 20 minutes on, 10 minutes off while awake to help decrease this left facial swelling/bruising. X-rays of her chest and left shoulder were done, no fracture. CT imaging of her head, facial bones and cervical spine were done without any acute traumatic findings. Recommend making sure that her room is adequately assessed for falls risk, see if she qualifies for any other benefits due to her increased falls. Recommend scheduled Tylenol 1000 mg 3 times a day for the next 7-10 days for pain management. Activity Level: Activity as Tolerated Prescriptions: No Action acetaminophen [Tylenol] 325 mg capsule 650 mg PO Q6H PRN lacosamide 50 mg tablet 50 mg PO .COMPLEX Rx Instructions: 50 mg orally 2 tabs in morning, 3 tabs in evening; sennosides-docusate sodium [Senna with Docusate Sodium] 8.6-50 mg tablet 1 tab-cap PO BID valsartan 160 mg tablet 160 mg PO BID amlodipine 10 mg tablet 10 mg PO DAILY aspirin 81 mg capsule 81 mg PO DAILY propranolol 60 mg capsule,extended release 24 hr 60 mg PO BID alendronate 70 mg tablet 70 mg PO QWEEK lidocaine 5 % adhesive patch,medicated 1 patch topical Q24H Rx Instructions: leave on most painful area for up to 12 hrs nitroglycerin [Nitrostat] 0.4 mg tablet, sublingual 0.4 mg sublingual Q5M PRN Rx Instructions: do not exceed 3 doses per episode ondansetron 4 mg tablet,disintegrating 4 mg PO Q8-12H PRN rosuvastatin 40 mg capsule, sprinkle 40 mg PO DAILY potassium chloride 10 mEq Capsule, Extended Release 20 meq PO BIDWM Qty: 6 0RF cefpodoxime 100 mg tablet 100 mg PO BID Qty: 14 0RF Rx Instructions: must administer with a meal/food oxycodone 5 mg tablet 2.5 mg PO Q6H PRN Follow Up/Referrals: William Ramsay MD [Primary Care Provider] - Stand Alone Forms: [facility] Info Instructions
[2023-06-26 18:18] LABS: Lactate* 1.2 mmol/L (0.5-1.9)
[2023-06-26 18:22] LABS: Basophils Absolute Auto 0.02 K/uL (0.00-0.30); Basophils Percent Auto 0.3 % (0.0-3.0); Eosinophils Absolute Auto 0.08 K/uL (0.00-0.50); Eosinophils Percent Auto 1.3 % (0.0-7.0); Hematocrit 38.2 % (33.0-51.0); Hemoglobin* 12.5 gm/dL (12.0-16.0); Immature Granulocytes Abs Auto 0.03 K/uL (0.00-0.30); Immature Granulocytes Pct Auto 0.5 %; Lymphocytes Absolute Auto 1.55 K/uL (0.90-2.90); Lymphocytes Percent Auto 24.6 % (20-44); Mean Corpuscular HGB Conc 33 gm/dL (32-36); Mean Corpuscular Hemoglobin 29 pg (26-34); Mean Corpuscular Volume 90 fL (80-100); Neutrophils Absolute Auto 4.06 K/uL (1.7-7.0); Neutrophils Percent Auto 64.3 % (42.0-72.0); Platelet Count* 206 K/uL (140-440); RDW Coefficient of Variation % 13.1 % (11.5-15.5); Red Blood Count 4.25 m/uL (4.00-5.20); White Blood Count* 6.31 K/uL (4.50-11.00)
[2023-06-26 18:34] LABS: Albumin* 3.8 g/dL (3.3-5.0); Chloride* 107 mmol/L (96-114)
[2023-06-26 18:35] LABS: Potassium* 3.6 mmol/L (3.6-5.1); Sodium* 137 mmol/L (135-149)
[2023-06-26 18:36] LABS: Slide Review Reflex No
[2023-06-26 18:37] LABS: Anion Gap 6 mEq/L (7-15); Bilirubin Total* 0.6 mg/dL (0.1-1.5); Carbon Dioxide* 24 mmol/L (20-32); Creatinine* 0.5 mg/dL (0.5-1.5); Estimated Glomerular Filt Rate 98 ml/min
[2023-06-26 18:38] LABS: Alanine Aminotransferase* 17 U/L (4-35); Alkaline Phosphatase* 80 U/L (40-150); Aspartate Amino Transferase* 26 U/L (12-35); Blood Urea Nitrogen* 15 mg/dL (7-30); Calcium* 8.9 mg/dL (8.4-10.6); Glucose* 87 mg/dL (60-115); Total Protein* 6.9 g/dL (6.0-8.3)
[2023-06-26 18:44] LABS: C Reactive Protein* < 0.5 mg/dL (0.5-1.0)
[2023-06-26 18:53] LABS: Troponin I* < 0.01 ng/mL (0.01-0.04)
[2023-06-26 18:55] LABS: Procalcitonin* 0.05 ng/mL (<0.50)
[2023-06-26] MEDS: ACETAMINOPHEN 325 MG TABLET 650 MG PO (18:57)
[2023-06-26 20:09] LABS: PCR FLU A Negative PCR FLU A (Negative); PCR FLU B Negative PCR FLU B (Negative); PCR RSV Negative PCR RSV (Negative); SARS PCR* Negative SARS-CoV-2 (Negative)
== END 2023-06-26 21:45 | disposition home or self-care (01) ==
PROVIDERS: Emergency Provider Family Medicine; PCP Family Medicine
DX: S00.12XA Contusion of left eyelid and periocular area, initial encounter (principal); W19.XXXA Unspecified fall, initial encounter; S41.112A Laceration without foreign body of left upper arm, initial encounter
CPT/HCPCS: 36415; 70450; 70486; 71045; 72125; 73030; 80053; 81001; 83605; 84145; 84484; 85025; 86140; 87631; 93005; 94761; 99284; 99285; 99291; A9270; G0390

== ENCOUNTER 2023-06-26 21:39 | Outpatient (CLI) | payer BC, SELFPAY | END 2023-06-26 21:40 | disposition home or self-care (01) | PROVIDERS: PCP Family Medicine; Visit Provider Student in an Organized Health Care Education/Training Program | DX: R26.81 Unsteadiness on feet (principal) | CPT/HCPCS: A0425; A0428 ==